=== PATIENT | male | born 1950 | race African-American/Black ===

== ENCOUNTER → 2016-11-05 | Outpatient (CLI) | payer MEDICARE, OTHER ==
[2014-07-26 11:20] VITALS: BP 134/75
[~2016-11-05] MED LIST: ASPI325T8 PO; ATEN50TA PO; CHOL100017 PO; GLIP10TA13 PO; INSU100V8 SQ; IOHEXOL 300 MG/ML 100ML VIAL. IV ONE; LISI40TA PO; OXYC-323 PO; POTA20TA12 PO; SIMV40TA3 PO; SITA100T PO; TERA10CA3 PO
--- NOTE | 2016-11-05 15:52 | KCIC ---
Indication: Gross hematuria, a few episodes. Technique: Precontrast imaging through the abdomen and pelvis was performed. 100 second delayed imaging was performed through the kidneys. 10 minute delayed imaging was performed through the abdomen and pelvis. Maximum intensity projection reformats are provided for the delayed images. 75 mL of intravenous Omnipaque 300 was administered without complication. Comparison is a renal ultrasound from October 17, 2013. One or more of the following individualized dose reduction techniques were utilized for this examination: 1. Automated exposure control 2. Adjustment of the mA and/or kV according to patient size 3. Use of iterative reconstruction technique Findings: Precontrast imaging demonstrates no obstructing or nonobstructing renal calculus. There is a simple cyst in the lower pole of the left kidney measuring 2.7 cm and the lower pole of the right kidney measuring 1.7 cm. There is an interpolar probable cyst in the left kidney measuring 9 mm. There is no urothelial mass. There is no ureteral dilation. Bladder is not well distended but is grossly unremarkable. Prostate remains markedly enlarged as noted on prior ultrasound, 8 x 8 x 7 cm. Please correlate with exam findings and PSA value. Lung bases are clear. There is no pleural effusion. The heart is not enlarged. There are low-density lesions within the liver which do not fill in on delayed imaging, most likely small cysts up to 11 mm in size. One lesion has some associated peripheral calcification. Gallbladder is unremarkable. Spleen is not enlarged. Pancreas and adrenals are unremarkable. There is atheromatous disease in the abdominal aorta without aneurysm. Lack of oral contrast limits evaluation of bowel. There is no bowel obstruction or mural thickening. Normal appendix is noted. There is a fat-containing umbilical hernia. There is apparent expansion of the hepatic artery with apparent thrombus with peripheral calcification present within the hepatic artery. The vessel does not appear occluded, its diameter is increased to 2.8 cm. Presence of peripheral calcification favors that this potential endoluminal thrombus is chronic. Comparison to any previous CTs would be of benefit. There is no free pelvic fluid or pelvic adenopathy. There are degenerative changes in the spine. IMPRESSION: 1. Negative for urothelial mass or calculus. 2. Enlarged prostate redemonstrated, please correlate with exam findings and PSA value. 3. Limited evaluation of the bladder given degree of distention. 4. 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 Recommend CT angiogram abdomen as well as 70 second delayed imaging for further evaluation. Electronically signed by: Mark Sorto MD (11/05/2016 3:49 PM) [facility]
== END | disposition home or self-care (01) ==
LOC: KCIC CT 09:49
PROVIDERS: ATTEND Specialist
DX: R31.0 Gross hematuria (principal)
CPT/HCPCS: 74178; 82565; Q9967